=== PATIENT | female | born 1945 | race African-American/Black ===

== ENCOUNTER 2016-07-12 16:31 | Inpatient (IN) | payer MEDICARE, MEDICAID ==
[~2016-07-12] VITALS: Ht 160 cm; Wt 122.7 kg
[~2016-07-12 16:31] MED LIST: ASPI81TA27 PO; ATOR10TA52 PO; ERGO1CAP23 PO; FURO40TA PO; GABA300C8 PO; HCTZ25T PO; INSLANTI SC; INSLISPI SC; INSUINJ37 SUBCUT; LOSA50TA6 PO; METF-312 PO; POTA20TA53 PO
[2016-07-12 17:19] LABS: Basophils # (auto) 0 uL; Basophils % (auto) 0.2 % (0.0-2.0); Eosinophils # (auto) 0.1 uL; Eosinophils % (auto) 2.2 % (0.0-7.0); Hematocrit 35.1 % (36.0-46.0); Hemoglobin 11.1 g/dL (12.2-16.2); Lymphocytes # (auto) 0.7 uL; Mean Corpuscular Hgb Conc. 31.5 g/dL (32.0-36.0); Mean Corpuscular Volume 85.8 fL (80.0-100.0); Mean Platelet Volume 7.6 fL (7.4-10.4); Monocytes # (auto) 0.2 uL; Neutrophils # (auto) 5.6 uL; Neutrophils % (auto) 84.6 % (37.0-80.0); Platelet Count (auto) 378 10^3/uL (140-450); Red Cell Distribution Width 16.8 % (11.6-16.0); White Blood Cell 6.6 10^3/uL (4.4-10.8)
[2016-07-12 17:35] LABS: Albumin 3.3 g/dL (3.4-5.0); BUN/Creatinine Ratio 23.9; Bilirubin, Total 0.3 mg/dL (0.2-1.0); Calcium 8.7 mg/dL (8.5-10.1); Magnesium 2.5 mg/dL (1.6-2.6); Potassium 4.5 mmol/L (3.5-5.1); Total Protein 7.5 g/dL (6.4-8.2)
[2016-07-12 18:00] LABS: B-Type Natriuretic Peptide 283.98 pg/mL (0-100)
[2016-07-12] MEDS ORDERED: ALBUTEROL SULF 2.5 MG/0.5ML(0.5%) NEB SOLN NEB ONE (18:15)
[2016-07-12] MEDS ORDERED: AZITHROMYCIN 500MG/D5W 250ML 250 ML IV ONE (18:15)
[2016-07-12] MEDS ORDERED: FUROSEMIDE 20 MG/2 ML VIAL IV ONE (18:15)
[2016-07-12] MEDS ORDERED: LEVOFLOXACIN 500MG 100 ML IV ONE (18:15)
[2016-07-12] MEDS ORDERED: ASPirin 81 mg TAB PO ONE (18:15)
[2016-07-12] MEDS ORDERED: IPRATROPIUM BROM 0.5 MG/2.5ML INH SOL NEB ONE (18:15)
[2016-07-12] MEDS ORDERED: methylPREDNISolone SOD SUCC 125 MG/2 ML VL IV ONE (18:15)
[2016-07-12 19:12] LABS: Urine Bilirubin Negative (Negative); Urine Blood Negative /uL (Negative); Urine Color Yellow (Yellow); Urine Ketone Negative (Negative); Urine RBC <1 /hpf (0 - 4); Urine Squamous Epithelial Cell FEW /hpf (<5); Urine Urobilinogen Normal (Negative); Urine pH 6.5 (5.0-8.0)
[2016-07-12 19:18] LABS: Urine Glucose 4+ mg/dL (Normal); Urine Nitrite POSITIVE (Negative)
[2016-07-12] MEDS ORDERED: HYDROcodone-ACET 5/325MG TAB PO PRN (19:45)
[2016-07-12] MEDS ORDERED: TEMAZEPAM 15 MG CAP PO PRN (19:45)
[2016-07-12] MEDS ORDERED: ALBUTEROL SULF 2.5 MG/0.5ML(0.5%) NEB SOLN NEB PRN (19:45)
[2016-07-12] MEDS ORDERED: MORPHINE SULF INJ 2 MG/ML SYRINGE 1ML IV PRN ×2 (19:45)
[2016-07-12] MEDS ORDERED: PROCHLORPERAZINE EDISYLATE 5 MG/ML 2ML VIAL IV PRN (19:45)
[2016-07-12] MEDS ORDERED: LORazepam 0.5 MG TAB PO PRN (19:45)
[2016-07-12] MEDS ORDERED: DEXTROSE (50%) 50ML SYRG IV PRN (19:45)
[2016-07-12] MEDS ORDERED: NITROGLYCERIN 0.4 MG SL TAB SL PRN (19:45)
[2016-07-12] MEDS ORDERED: LACTULOSE 20Gm/30ML SOLN PO PRN (19:45)
[2016-07-12] MEDS ORDERED: ENOXAPARIN SOD 40 MG/0.4 ML SYRINGE SC ONE (19:53)
[2016-07-12] MEDS ORDERED: DOXYCYCLINE HYC 100MG/250ML 250 ML IV SCH (20:00)
[2016-07-12 21:00] VITALS: BP 142/56
[2016-07-12] MEDS: ACCU-CHEK COMFORT CURVE STRIP VI SCH (21:57)
[2016-07-12 22:00] VITALS: BP 142/56
[2016-07-12] MEDS ORDERED: INSULIN GLARGINE SC SCH (22:00)
[2016-07-12] MEDS: InsuLIN REG 1unit/0.01ml Soln (100units/ml) SC SCH (22:02)
[2016-07-12] MEDS: ATORVASTATIN 20 MG TAB PO SCH (23:58)
[2016-07-12] MEDS: CARVEDILOL 3.125 MG TAB PO SCH (23:59)
[2016-07-12] MEDS: GABAPENTIN 300 MG CAP PO SCH (23:59)
[2016-07-13] MEDS: diphenhdrAMINE HCL 25 MG CAP PO PRN ×2 (00:55→22:29)
[2016-07-13] MEDS: ACETAMINOPHEN 500 MG TAB PO PRN ×2 (00:56→22:30)
[2016-07-13] MEDS: methylPREDNISolone SOD SUCC 40 MG/ML VL IV SCH ×4 (00:56→18:33)
[2016-07-13] MEDS: ACCU-CHEK COMFORT CURVE STRIP VI SCH ×6 (01:15→20:00)
[2016-07-13] MEDS: InsuLIN REG 1unit/0.01ml Soln (100units/ml) SC SCH ×6 (01:20→20:00)
[2016-07-13 03:30] VITALS: BP 142/56
[2016-07-13 05:45] VITALS: BP 160/80
[2016-07-13 05:52] LABS: Basophils # (auto) 0 uL; Eosinophils # (auto) 0 uL; Eosinophils % (auto) 0.1 % (0.0-7.0); Hematocrit 36.2 % (36.0-46.0); Hemoglobin 11.4 g/dL (12.2-16.2); Lymphocytes # (auto) 0.3 uL; Lymphocytes % (auto) 4.7 % (10.0-50.0); Mean Corpuscular Hemoglobin 27.1 pg (28.0-32.0); Mean Corpuscular Hgb Conc. 31.5 g/dL (32.0-36.0); Mean Platelet Volume 8.1 fL (7.4-10.4); Monocytes # (auto) 0 uL; Monocytes % (auto) 0.6 % (0.0-12.0); Neutrophils # (auto) 6.7 uL; Neutrophils % (auto) 94.6 % (37.0-80.0); Platelet Count (auto) 335 10^3/uL (140-450); Red Cell Distribution Width 16.5 % (11.6-16.0); White Blood Cell 7.1 10^3/uL (4.4-10.8)
[2016-07-13] MEDS: GABAPENTIN 300 MG CAP PO SCH ×3 (06:15→22:29)
[2016-07-13] MEDS: FUROSEMIDE 40 MG/4 ML VIAL IV SCH ×3 (06:15→18:34)
[2016-07-13 06:29] LABS: Temperature: 21.6 C (20.0-25.0)
[2016-07-13 06:34] LABS: Albumin 3.3 g/dL (3.4-5.0); BUN/Creatinine Ratio 27.3; Bilirubin, Total 0.3 mg/dL (0.2-1.0); Calcium 8.9 mg/dL (8.5-10.1); Potassium 4.4 mmol/L (3.5-5.1); Total Protein 7.6 g/dL (6.4-8.2)
[2016-07-13] MEDS: ALBUTEROL SULF 2.5 MG/0.5ML(0.5%) NEB SOLN NEB SCH ×3 (06:51→18:00)
[2016-07-13] MEDS: IPRATROPIUM BROM 0.5 MG/2.5ML INH SOL NEB SCH ×3 (06:52→18:00)
[2016-07-13] MEDS ORDERED: INSULIN LISPRO SC SCH (08:00)
[2016-07-13 09:00] VITALS: BP 124/66
[2016-07-13] MEDS ORDERED: FUROSEMIDE 40 MG/4 ML VIAL IV SCH (10:00)
[2016-07-13] MEDS: NITROGLYCERIN 0.2MG/HR TOPICAL PATCH TD SCH (10:00)
[2016-07-13] MEDS ORDERED: ASPirin 81 mg TAB PO SCH (10:00)
[2016-07-13] MEDS ORDERED: POTASSIUM CHL 20 Meq TABLET PO SCH (10:00)
[2016-07-13] MEDS: DOXYCYCLINE HYC 100MG/250ML 250 ML IV SCH ×2 (11:06→22:28)
[2016-07-13] MEDS: CARVEDILOL 3.125 MG TAB PO SCH ×2 (11:10→22:31)
[2016-07-13] MEDS: LOSARTAN POTASSIUM 50 MG TAB PO SCH (11:11)
[2016-07-13] MEDS: ASPirin-EC 81 mg tab PO SCH (11:11)
[2016-07-13] MEDS: POTASSIUM CHL 20 Meq TABLET PO SCH ×2 (11:11→22:29)
[2016-07-13] MEDS: ENOXAPARIN SOD 40 MG/0.4 ML SYRINGE SC SCH ×2 (11:12→22:28)
[2016-07-13 15:25] VITALS: BP 130/65
[2016-07-13 18:01] VITALS: BP 130/71
[2016-07-13] MEDS: Boost Glucose Control 8 Ounces PO SCH (18:19)
[2016-07-13 22:00] VITALS: BP 156/66
[2016-07-13] MEDS: INSULIN DETEMIR(LEVEMIR) 1unit/0.01ml Soln (100units/ml) SC SCH (22:00)
[2016-07-13] MEDS: ATORVASTATIN 20 MG TAB PO SCH (22:28)
[2016-07-14] MEDS: methylPREDNISolone SOD SUCC 40 MG/ML VL IV SCH ×5 (00:28→23:26)
[2016-07-14] MEDS: InsuLIN REG 1unit/0.01ml Soln (100units/ml) SC SCH ×7 (00:28→23:40)
[2016-07-14] MEDS: ACCU-CHEK COMFORT CURVE STRIP VI SCH ×7 (00:28→23:39)
[2016-07-14] MEDS: IPRATROPIUM BROM 0.5 MG/2.5ML INH SOL NEB SCH ×4 (00:44→18:59)
[2016-07-14] MEDS: ALBUTEROL SULF 2.5 MG/0.5ML(0.5%) NEB SOLN NEB SCH ×4 (00:45→18:59)
[2016-07-14 05:00] VITALS: BP 159/95
[2016-07-14] MEDS: GABAPENTIN 300 MG CAP PO SCH ×3 (06:09→20:20)
[2016-07-14] MEDS: FUROSEMIDE 40 MG/4 ML VIAL IV SCH ×2 (06:10→17:11)
[2016-07-14 06:27] LABS: Basophils # (auto) 0 uL; Eosinophils # (auto) 0 uL; Hematocrit 35.7 % (36.0-46.0); Hemoglobin 11.4 g/dL (12.2-16.2); Lymphocytes # (auto) 0.4 uL; Lymphocytes % (auto) 4.6 % (10.0-50.0); Mean Corpuscular Hemoglobin 27.4 pg (28.0-32.0); Mean Corpuscular Volume 85.5 fL (80.0-100.0); Mean Platelet Volume 7.8 fL (7.4-10.4); Monocytes # (auto) 0.2 uL; Monocytes % (auto) 2.3 % (0.0-12.0); Neutrophils # (auto) 7.4 uL; Neutrophils % (auto) 93.1 % (37.0-80.0); Platelet Count (auto) 355 10^3/uL (140-450); Red Cell Distribution Width 16.6 % (11.6-16.0)
[2016-07-14 06:39] LABS: Potassium 4.4 mmol/L (3.5-5.1)
[2016-07-14 06:45] LABS: BUN/Creatinine Ratio 41.1
[2016-07-14 06:46] LABS: Albumin 3.4 g/dL (3.4-5.0); Calcium 8.6 mg/dL (8.5-10.1)
[2016-07-14 06:49] LABS: Bilirubin, Total 0.2 mg/dL (0.2-1.0); Total Protein 7.4 g/dL (6.4-8.2)
[2016-07-14] MEDS ORDERED: INSULIN DETEMIR(LEVEMIR) 1unit/0.01ml Soln (100units/ml) SC SCH (07:00)
[2016-07-14] MEDS: Boost Glucose Control 8 Ounces PO SCH ×3 (08:00→18:00)
[2016-07-14 09:00] VITALS: BP 106/45
[2016-07-14] MEDS: NITROGLYCERIN 0.2MG/HR TOPICAL PATCH TD SCH (10:00)
[2016-07-14] MEDS: DOXYCYCLINE HYC 100MG/250ML 250 ML IV SCH ×2 (10:28→20:19)
[2016-07-14] MEDS: POTASSIUM CHL 20 Meq TABLET PO SCH ×2 (10:28→20:20)
[2016-07-14] MEDS: ENOXAPARIN SOD 40 MG/0.4 ML SYRINGE SC SCH ×2 (10:28→20:21)
[2016-07-14] MEDS: LOSARTAN POTASSIUM 50 MG TAB PO SCH (10:28)
[2016-07-14] MEDS: ASPirin-EC 81 mg tab PO SCH (10:28)
[2016-07-14] MEDS: CARVEDILOL 3.125 MG TAB PO SCH ×2 (10:29→22:02)
[2016-07-14 13:49] VITALS: BP 147/57
[2016-07-14] MEDS ORDERED: InsuLIN REG 1unit/0.01ml Soln (100units/ml) SC ONE (14:15)
[2016-07-14] MEDS ORDERED: DEXTROSE (50%) 50ML SYRG IV PRN (14:15)
[2016-07-14] MEDS: FLUCONAZOLE 100 MG TAB PO SCH (14:28)
[2016-07-14] MEDS: ALUM & MAG HYDROX-SIMETH LIQ(MAALOX) 30 ML PO PRN (16:27)
[2016-07-14 16:57] VITALS: BP 159/88
[2016-07-14] MEDS: diphenhdrAMINE HCL 25 MG CAP PO PRN (20:19)
[2016-07-14] MEDS: ACETAMINOPHEN 500 MG TAB PO PRN (20:19)
[2016-07-14] MEDS: ATORVASTATIN 20 MG TAB PO SCH (20:20)
[2016-07-14] MEDS: INSULIN DETEMIR(LEVEMIR) 1unit/0.01ml Soln (100units/ml) SC SCH (20:21)
[2016-07-14 22:00] VITALS: BP 121/74
[2016-07-15] MEDS ORDERED: INSULIN DETEMIR(LEVEMIR) 1unit/0.01ml Soln (100units/ml) SC ONE
[2016-07-15] MEDS ORDERED: InsuLIN REG 1unit/0.01ml Soln (100units/ml) SC ONE
[2016-07-15] MEDS ORDERED: InsuLIN REG 1unit/0.01ml Soln (100units/ml) IV ONE
[2016-07-15] MEDS: ACCU-CHEK COMFORT CURVE STRIP VI SCH ×6 (03:58→23:54)
[2016-07-15] MEDS: InsuLIN REG 1unit/0.01ml Soln (100units/ml) SC SCH ×6 (03:58→23:53)
[2016-07-15 05:00] VITALS: BP 139/68
[2016-07-15] MEDS: GABAPENTIN 300 MG CAP PO SCH ×3 (05:33→21:56)
[2016-07-15] MEDS: FUROSEMIDE 40 MG/4 ML VIAL IV SCH ×2 (05:33→17:53)
[2016-07-15 06:18] LABS: Basophils # (auto) 0 uL; Eosinophils # (auto) 0 uL; Hematocrit 38.1 % (36.0-46.0); Lymphocytes # (auto) 0.3 uL; Lymphocytes % (auto) 3.8 % (10.0-50.0); Mean Corpuscular Hemoglobin 27.1 pg (28.0-32.0); Mean Corpuscular Hgb Conc. 31.4 g/dL (32.0-36.0); Mean Corpuscular Volume 86.2 fL (80.0-100.0); Monocytes # (auto) 0.2 uL; Neutrophils # (auto) 8.6 uL; Neutrophils % (auto) 94.2 % (37.0-80.0); Platelet Count (auto) 384 10^3/uL (140-450); Red Cell Distribution Width 16.9 % (11.6-16.0); White Blood Cell 9.2 10^3/uL (4.4-10.8)
[2016-07-15 06:44] LABS: Albumin 3.3 g/dL (3.4-5.0); BUN/Creatinine Ratio 41.6; Bilirubin, Total 0.3 mg/dL (0.2-1.0); Calcium 8.6 mg/dL (8.5-10.1); Potassium 4.5 mmol/L (3.5-5.1); Total Protein 7.6 g/dL (6.4-8.2)
[2016-07-15] MEDS: INSULIN DETEMIR(LEVEMIR) 1unit/0.01ml Soln (100units/ml) SC SCH ×2 (06:48→17:51)
[2016-07-15] MEDS: IPRATROPIUM BROM 0.5 MG/2.5ML INH SOL NEB SCH ×4 (06:58→18:00)
[2016-07-15] MEDS: ALBUTEROL SULF 2.5 MG/0.5ML(0.5%) NEB SOLN NEB SCH ×4 (06:58→18:00)
[2016-07-15 08:43] VITALS: BP 115/56
[2016-07-15] MEDS: DOXYCYCLINE HYC 100MG/250ML 250 ML IV SCH ×2 (09:49→21:54)
[2016-07-15] MEDS: methylPREDNISolone SOD SUCC 40 MG/ML VL IV SCH ×2 (09:49→21:54)
[2016-07-15] MEDS: POTASSIUM CHL 20 Meq TABLET PO SCH ×2 (09:49→21:56)
[2016-07-15] MEDS: ENOXAPARIN SOD 40 MG/0.4 ML SYRINGE SC SCH ×2 (09:49→21:54)
[2016-07-15] MEDS: ASPirin-EC 81 mg tab PO SCH (09:49)
[2016-07-15] MEDS: LOSARTAN POTASSIUM 50 MG TAB PO SCH (09:50)
[2016-07-15] MEDS: FLUCONAZOLE 100 MG TAB PO SCH (09:50)
[2016-07-15] MEDS: CARVEDILOL 3.125 MG TAB PO SCH ×2 (09:50→21:56)
[2016-07-15] MEDS: NITROGLYCERIN 0.2MG/HR TOPICAL PATCH TD SCH (09:51)
[2016-07-15] MEDS: Boost Glucose Control 8 Ounces PO SCH ×3 (09:52→18:00)
[2016-07-15 12:26] VITALS: BP 140/61
[2016-07-15 16:19] VITALS: BP 143/63
[2016-07-15 21:27] VITALS: BP 145/70
[2016-07-15] MEDS: ATORVASTATIN 20 MG TAB PO SCH (21:55)
[2016-07-15] MEDS: ACETAMINOPHEN 500 MG TAB PO PRN (22:10)
[2016-07-15] MEDS: diphenhdrAMINE HCL 25 MG CAP PO PRN (22:11)
[2016-07-16] MEDS ORDERED: INSULIN DETEMIR(LEVEMIR) 1unit/0.01ml Soln (100units/ml) SC ONE (00:30)
[2016-07-16] MEDS: ALBUTEROL SULF 2.5 MG/0.5ML(0.5%) NEB SOLN NEB SCH ×4 (01:04→19:25)
[2016-07-16] MEDS: IPRATROPIUM BROM 0.5 MG/2.5ML INH SOL NEB SCH ×4 (01:05→19:25)
[2016-07-16 01:10] VITALS: BP 143/63
[2016-07-16] MEDS: InsuLIN REG 1unit/0.01ml Soln (100units/ml) SC SCH ×6 (04:06→23:43)
[2016-07-16] MEDS: ACCU-CHEK COMFORT CURVE STRIP VI SCH ×6 (04:06→23:43)
[2016-07-16] MEDS: GABAPENTIN 300 MG CAP PO SCH ×3 (05:46→21:45)
[2016-07-16] MEDS: FUROSEMIDE 40 MG/4 ML VIAL IV SCH ×2 (05:47→17:47)
[2016-07-16] MEDS: INSULIN DETEMIR(LEVEMIR) 1unit/0.01ml Soln (100units/ml) SC SCH ×2 (06:21→22:03)
[2016-07-16] MEDS: Boost Glucose Control 8 Ounces PO SCH ×2 (07:56→12:05)
[2016-07-16 08:00] VITALS: BP 112/53
[2016-07-16 08:03] VITALS: BP 112/53
[2016-07-16] MEDS: ENOXAPARIN SOD 40 MG/0.4 ML SYRINGE SC SCH (10:03)
[2016-07-16] MEDS: NITROGLYCERIN 0.2MG/HR TOPICAL PATCH TD SCH (10:03)
[2016-07-16] MEDS: methylPREDNISolone SOD SUCC 40 MG/ML VL IV SCH ×2 (10:04→21:43)
[2016-07-16] MEDS: DOXYCYCLINE HYC 100MG/250ML 250 ML IV SCH (10:04)
[2016-07-16] MEDS: CARVEDILOL 3.125 MG TAB PO SCH ×2 (10:05→21:46)
[2016-07-16] MEDS: ASPirin-EC 81 mg tab PO SCH (10:05)
[2016-07-16] MEDS: POTASSIUM CHL 20 Meq TABLET PO SCH ×2 (10:06→21:44)
[2016-07-16] MEDS: LOSARTAN POTASSIUM 50 MG TAB PO SCH (10:06)
[2016-07-16] MEDS: FLUCONAZOLE 100 MG TAB PO SCH (10:06)
[2016-07-16 11:44] VITALS: BP 166/86
[2016-07-16 16:38] VITALS: BP 118/49
[2016-07-16] MEDS: ATORVASTATIN 20 MG TAB PO SCH (21:45)
[2016-07-16] MEDS: DOXYCYCLINE 100 MG TAB/CAP PO SCH (21:45)
[2016-07-16] MEDS: ACETAMINOPHEN 500 MG TAB PO PRN (22:05)
[2016-07-16] MEDS: diphenhdrAMINE HCL 25 MG CAP PO PRN (22:05)
[2016-07-16 22:08] VITALS: BP 111/47
[2016-07-17] MEDS ORDERED: INSULIN DETEMIR(LEVEMIR) 1unit/0.01ml Soln (100units/ml) SC ONE
[2016-07-17] MEDS: IPRATROPIUM BROM 0.5 MG/2.5ML INH SOL NEB SCH ×4 (00:33→19:05)
[2016-07-17] MEDS: ALBUTEROL SULF 2.5 MG/0.5ML(0.5%) NEB SOLN NEB SCH ×4 (00:33→19:05)
[2016-07-17] MEDS: ACCU-CHEK COMFORT CURVE STRIP VI SCH ×4 (04:11→21:36)
[2016-07-17] MEDS: InsuLIN REG 1unit/0.01ml Soln (100units/ml) SC SCH ×4 (04:11→21:36)
[2016-07-17 05:30] VITALS: BP 152/83
[2016-07-17] MEDS: FUROSEMIDE 40 MG/4 ML VIAL IV SCH ×2 (05:58→18:31)
[2016-07-17] MEDS: GABAPENTIN 300 MG CAP PO SCH ×3 (05:58→21:35)
[2016-07-17] MEDS: INSULIN DETEMIR(LEVEMIR) 1unit/0.01ml Soln (100units/ml) SC SCH ×2 (06:15→21:38)
[2016-07-17 08:00] VITALS: BP 152/83
[2016-07-17 08:46] VITALS: BP 120/71
[2016-07-17] MEDS: POTASSIUM CHL 20 Meq TABLET PO SCH ×2 (10:19→21:31)
[2016-07-17] MEDS: methylPREDNISolone SOD SUCC 40 MG/ML VL IV SCH ×2 (10:19→21:35)
[2016-07-17] MEDS: DOXYCYCLINE 100 MG TAB/CAP PO SCH ×2 (10:20→21:35)
[2016-07-17] MEDS: ASPirin-EC 81 mg tab PO SCH (10:20)
[2016-07-17] MEDS: LOSARTAN POTASSIUM 50 MG TAB PO SCH (10:20)
[2016-07-17] MEDS: CARVEDILOL 3.125 MG TAB PO SCH ×2 (10:21→21:35)
[2016-07-17] MEDS: NITROGLYCERIN 0.2MG/HR TOPICAL PATCH TD SCH (10:22)
[2016-07-17 13:00] VITALS: BP 124/65
[2016-07-17 17:00] VITALS: BP 115/50
[2016-07-17] MEDS: ATORVASTATIN 20 MG TAB PO SCH (21:35)
[2016-07-17] MEDS: diphenhdrAMINE HCL 25 MG CAP PO PRN (21:52)
[2016-07-17 22:00] VITALS: BP 114/55
[2016-07-18 05:00] VITALS: BP 137/76
[2016-07-18] MEDS: FUROSEMIDE 40 MG/4 ML VIAL IV SCH ×2 (05:43→17:57)
[2016-07-18] MEDS: ACCU-CHEK COMFORT CURVE STRIP VI SCH ×4 (05:44→21:44)
[2016-07-18] MEDS: InsuLIN REG 1unit/0.01ml Soln (100units/ml) SC SCH ×4 (05:44→21:46)
[2016-07-18] MEDS: GABAPENTIN 300 MG CAP PO SCH ×3 (05:44→21:43)
[2016-07-18] MEDS: INSULIN DETEMIR(LEVEMIR) 1unit/0.01ml Soln (100units/ml) SC SCH ×2 (05:59→21:51)
[2016-07-18] MEDS: IPRATROPIUM BROM 0.5 MG/2.5ML INH SOL NEB SCH ×4 (08:11→18:41)
[2016-07-18] MEDS: ALBUTEROL SULF 2.5 MG/0.5ML(0.5%) NEB SOLN NEB SCH ×4 (08:11→18:41)
[2016-07-18 08:30] VITALS: BP 114/77
[2016-07-18] MEDS: CARVEDILOL 3.125 MG TAB PO SCH ×2 (09:59→21:43)
[2016-07-18] MEDS: POTASSIUM CHL 20 Meq TABLET PO SCH ×2 (09:59→21:43)
[2016-07-18] MEDS: DOXYCYCLINE 100 MG TAB/CAP PO SCH ×2 (09:59→21:43)
[2016-07-18] MEDS: NITROGLYCERIN 0.2MG/HR TOPICAL PATCH TD SCH (09:59)
[2016-07-18] MEDS: LOSARTAN POTASSIUM 50 MG TAB PO SCH (10:00)
[2016-07-18] MEDS: ASPirin-EC 81 mg tab PO SCH (10:00)
[2016-07-18] MEDS: methylPREDNISolone SOD SUCC 40 MG/ML VL IV SCH ×2 (10:00→21:43)
[2016-07-18 13:00] VITALS: BP 126/62
[2016-07-18 16:53] VITALS: BP 140/68
[2016-07-18] MEDS: ALUM & MAG HYDROX-SIMETH LIQ(MAALOX) 30 ML PO PRN (17:58)
[2016-07-18] MEDS: ATORVASTATIN 20 MG TAB PO SCH (21:43)
[2016-07-18] MEDS: diphenhdrAMINE HCL 25 MG CAP PO PRN (21:43)
[2016-07-18 22:10] VITALS: BP 133/55
[2016-07-18 23:28] VITALS: BP 133/55
[2016-07-19] MEDS: ALBUTEROL SULF 2.5 MG/0.5ML(0.5%) NEB SOLN NEB SCH ×3 (00:25→11:45)
[2016-07-19] MEDS: IPRATROPIUM BROM 0.5 MG/2.5ML INH SOL NEB SCH ×3 (00:25→11:44)
[2016-07-19 05:42] VITALS: BP 120/57
[2016-07-19] MEDS: ACCU-CHEK COMFORT CURVE STRIP VI SCH (05:56)
[2016-07-19] MEDS: FUROSEMIDE 40 MG/4 ML VIAL IV SCH ×2 (05:56→10:39)
[2016-07-19] MEDS: GABAPENTIN 300 MG CAP PO SCH (05:56)
[2016-07-19] MEDS: InsuLIN REG 1unit/0.01ml Soln (100units/ml) SC SCH (05:57)
[2016-07-19] MEDS: INSULIN DETEMIR(LEVEMIR) 1unit/0.01ml Soln (100units/ml) SC SCH (05:57)
[2016-07-19] MEDS: ACETAMINOPHEN 500 MG TAB PO PRN (06:02)
[2016-07-19] MEDS ORDERED: ANGIOMAX 250 MG VIAL IV ONE (09:34)
[2016-07-19] MEDS ORDERED: SODIUM CHL 0.9% 50 ML ONE (09:34)
[2016-07-19] MEDS ORDERED: fentaNYL CITRATE 100 MCG/2 ML VL ONE (09:34)
[2016-07-19] MEDS ORDERED: MIDAZOLAM HCL 1MG/1ML-2 ML VIAL ONE (09:34)
[2016-07-19] MEDS ORDERED: LIDOCAINE 2%HCL (LOCAL ANESTH.) INJ 20ML MDV ONE (09:35)
[2016-07-19 09:49] VITALS: BP 156/82
[2016-07-19] MEDS: DOXYCYCLINE 100 MG TAB/CAP PO SCH (10:39)
[2016-07-19] MEDS: CARVEDILOL 3.125 MG TAB PO SCH (10:40)
[2016-07-19] MEDS: ASPirin-EC 81 mg tab PO SCH (10:40)
[2016-07-19] MEDS: LOSARTAN POTASSIUM 50 MG TAB PO SCH (10:50)
[2016-07-19] MEDS: methylPREDNISolone SOD SUCC 40 MG/ML VL IV SCH (11:00)
[2016-07-19] MEDS: POTASSIUM CHL 20 Meq TABLET PO SCH (11:01)
[2016-07-19] MEDS: NITROGLYCERIN 0.2MG/HR TOPICAL PATCH TD SCH (11:02)
[2016-07-19] MEDS ORDERED: METH4PAK PO (11:31)
[2016-07-19 13:00] VITALS: BP 149/93
== END 2016-07-19 13:45 | disposition home health service (06) | DRG 291 ==
LOC: EDBD 16:31 → ER 16:31 → TELE 16:32 → TELE-WESTW 20:45
PROVIDERS: ADMIT Internal Medicine; ATTEND Internal Medicine
DX: I50.33 Acute on chronic diastolic (congestive) heart failure (principal); J96.21 Acute and chronic respiratory failure with hypoxia; J44.1 Chronic obstructive pulmonary disease with (acute) exacerbation; N39.0 Urinary tract infection, site not specified; E44.0 Moderate protein-calorie malnutrition; I13.0 Hypertensive heart and chronic kidney disease with heart failure and stage 1 through stage 4 chronic kidney disease, or unspecified chronic kidney disease; Z68.42 Body mass index [BMI] 45.0-49.9, adult; D63.8 Anemia in other chronic diseases classified elsewhere; E66.01 Morbid (severe) obesity due to excess calories; J45.909 Unspecified asthma, uncomplicated; E11.22 Type 2 diabetes mellitus with diabetic chronic kidney disease; E11.65 Type 2 diabetes mellitus with hyperglycemia; N18.9 Chronic kidney disease, unspecified; Z90.710 Acquired absence of both cervix and uterus; Z82.49 Family history of ischemic heart disease and other diseases of the circulatory system; Z83.3 Family history of diabetes mellitus; Z88.0 Allergy status to penicillin; Z79.4 Long term (current) use of insulin; Z91.11 Patient's noncompliance with dietary regimen
CPT/HCPCS: 36415; 71010; 80053; 80061; 81001; 82550; 82962; 83036; 83605; 83735; 83880; 84443; 84484; 85025; 87040; 93005; 94640; 96374; 96375; 99291; J1815; J1956; J2250; J3490